=== PATIENT | male | born 1945 | race Caucasian/White ===

== ENCOUNTER 2016-12-26 15:33 | Inpatient (IN) | payer MEDICARE ==
--- NOTE | ~2016-12-26 | CN ---
Consultation Report [facility] [address] [place]. [address] NAME: KEYONNA BEGUM : 47 STATUS : ADM IN PAT#: [id number] AGE: 71 ADM/REG DATE : 12/26/16 MR#: [id number] REPORT SERV DATE: 12/30/16 DICTATED BY: KEYONNA ENG DATE: 12/29/16 REPORT STATUS : Draft TRANSCRIBED BY: MODL DATE: 12/29/16 NEPHROLOGY CONSULTATION DATE OF CONSULTATION: 12/29/2016 INDICATION FOR CONSULTATION: Acute on chronic kidney disease. HISTORY OF PRESENT ILLNESS: Mr. Begum is a 71-year-old male who is seen for acute on chronic kidney disease following admission for lower extremity edema and skin lesions. He was noted to have a prior creatinine of 2.12 in 11/2016 which has now huey to 2.85. He has taken several Aleve tablets and been on Prinivil and Lasix. Lasix was started when he was seen for his lower extremity edema at [facility]. He has received some metolazone and Bumex as well with improvement of lower extremity edema. Presently, he is being evaluated for new onset atrial fibrillation and cardiomyopathy with ejection fraction of 25%. He has longstanding type 2 diabetes mellitus and is on Avastin injections for diabetic retinopathy. Recent renal ultrasound demonstrated no obstruction or mass with changes consistent with chronic disease. PAST MEDICAL HISTORY: Type 2 diabetes mellitus, CHF, hypertension, diabetes, and diabetic retinopathy. SOCIAL HISTORY: The patient recently . Lives with [facility]. Has two sisters living in [place]. Remote smoker but no use in approximately 35 years. No alcohol use or illicit drug use. 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 MEDICATIONS ON ADMISSION: Aspirin, Avastin, Coreg, Keflex, Lasix, Prinivil, Zocor, and Refresh eyedrops. PAST SURGICAL HISTORY: None. ALLERGIES: NONE KNOWN. FAMILY HISTORY: Father from heart problems. Mother from kidney issues and had hypertension. Unaware of any end-stage renal disease, requiring dialysis. REVIEW OF SYSTEMS: HEENT: Decreased visual acuity but improving with Avastin injections. No epistaxis, pharyngitis, or otic infection. CARDIAC: Recent note of irregular heart rhythm. No lower extremity edema. Exertional dyspnea. Denies chest pain. PULMONARY: No hemoptysis, no pleuritic chest pain. GI: Occasional nausea, no vomiting. No melena. : Nocturia x1. No dysuria, gross hematuria, pyuria. MUSCULOSKELETAL: No arthralgias. No joint swelling. Consultation Report [facility] [address] [place]. [address] NAME: KEYONNA BEGUM : 47 STATUS : ADM IN [facility]#: [id number] AGE: 71 ADM/REG DATE : 12/26/16 MR#: [id number] REPORT SERV DATE: 12/30/16 DICTATED BY: KEYONNA ENG DATE: 12/29/16 REPORT STATUS : Draft TRANSCRIBED BY: MODL DATE: 12/29/16 Remainder of 12-point review of systems is negative. PHYSICAL EXAMINATION: GENERAL: A pleasant elderly man, mildly debilitated. VITAL SIGNS: Temp 96.2 blood pressure 91/61, pulse 71, and respiratory rate 16. HEENT: Eyes, no scleral icterus. Pupils equal, reactive to light. Extraocular movement intact. Nares patent. No lesions. Throat, no injection. Mucous membranes moist. NECK: No thyromegaly, masses, bruits. CHEST/LUNGS: Some decrease in breath sounds posteriorly, questionable dullness, late crackles posteriorly. CARDIAC: Irregular rhythm 1/6 systolic ejection murmur. No gallop. No rub. ABDOMEN: Supple. Normoactive bowel sounds. Nontender. No hepatosplenomegaly. No masses. /RECTAL: Not performed. EXTREMITIES: Lower extremities, lesions in both lower extremities. Left lower extremity wrapped and more swollen. Denies calf tenderness. DERMIS: Lower extremities skin lesions. No other sites noted. NEUROLOGIC: Cranial nerves intact. No lateralizing weakness. MUSCULOSKELETAL: No deformity. IMPRESSION: 1. Acute on chronic kidney disease, likely prerenal, question BAN inhibitor effect, nonsteroidals, both doubtful, likely related to congestive heart failure and diuresis. He likely also has underlying significant chronic kidney disease from diabetic nephropathy, and we expect nephrotic range proteinuria. 2. Acute on chronic systolic congestive heart failure. 3. Diabetic retinopathy, on intra-ocular Avastin injections. 4. Type 2 diabetes mellitus. 5. Cardiomyopathy with ejection fraction of 25%. 6. New onset atrial fibrillation. 7. Lower extremity edema, likely cardiorenal syndrome and/or related to proteinuria. 8. Hypertension. PLAN: 1. Would continue current medical therapy. 2. Labs. 3. Avoid hypotension. 4. Avoid nonsteroidal antiinflammatory drugs. CG/UBALDO Keyonna Consultation Report [address] [place] [address] NAME: KEYONNA BEGUM : 47 STATUS : ADM IN [facility]#: [id number] AGE: 71 ADM/REG DATE : 12/26/16 MR#: [id number] REPORT SERV DATE: 12/30/16 DICTATED BY: KEYONNA ENG DATE: 12/29/16 REPORT STATUS : Draft TRANSCRIBED BY: UBALDO DATE: 12/29/16 Jovanni Eng / [id number] CC: Danny Inman M.D.
--- NOTE | ~2016-12-26 | CN ---
Consultation Report [facility] [address] [place]. [address] NAME: KEYONNA BEGUM : 47 STATUS : ADM IN PAT#: [id number] AGE: 71 ADM/REG DATE : 12/26/16 MR#: [id number] REPORT SERV DATE: 12/27/16 DICTATED BY: RICHARD BAIRD DATE: 12/27/16 REPORT STATUS : Draft TRANSCRIBED BY: MODL DATE: 12/27/16 CONSULTATION DATE OF CONSULTATION: 12/27/2016 REASON FOR CONSULTATION: New onset atrial fibrillation as well as new cardiomyopathy. HISTORY OF PRESENT ILLNESS: Mr. Begum is a 71-year-old man with a very poorly defined medical history, who presents with two weeks of leg swelling as well as blistering and weeping from his lower extremities in the setting of ALLAN/CKD, severe systolic dysfunction (LVEF 25%), and atrial fibrillation. Collectively, these findings prompted consultation to Cardiology for further evaluation and care. In speaking with Mr. Begum, however, he has no cardiac complaints specifically. He denies having any chest pain, chest pressures, exertional symptoms, dizziness, or loss of consciousness. He states that he is able to complete his daily activities with fair comfort. He is able to ambulate around his home without much limitation. However, he does not exert himself in any moderate to high level activities. ALLERGIES: NONE. PAST MEDICAL HISTORY: As above as well as diabetes. He does have a poorly defined remote history of CHF; however, this was about 10 years ago and he is unsure of details. FAMILY HISTORY: Noncontributory for premature cardiovascular disease. SOCIAL HISTORY: The patient lives at home with his stepson. He functions fairly independently under normal circumstances. He denies drinking alcohol, smoking, or doing drugs. REVIEW OF SYSTEMS: As above, all other systems otherwise negative. HOME MEDICATIONS: Include: 1. Aspirin 325 mg p.o. daily. 2. Avastatin. 3. Coreg 12.5 p.o. b.i.d. 4. Keflex. 5. Lasix 40 mg q.a.m. 6. Lisinopril 10 mg q.a.m. 7. Zocor 40 mg p.o. at bedtime. PHYSICAL EXAMINATION: GENERAL: Blood pressure 103/70, pulse 100 to 110 irregular. GENERAL: Disheveled, poorly kept, poor dentition, older than stated age. Consultation Report [facility] [address] [place]. [address] NAME: KEYONNA BEGUM : 47 STATUS : ADM IN [facility]#: [id number] AGE: 71 ADM/REG DATE : 12/26/16 MR#: [id number] REPORT SERV DATE: 12/27/16 DICTATED BY: RICHARD BAIRD DATE: 12/27/16 REPORT STATUS : Draft TRANSCRIBED BY: MODLynda DATE: 12/27/16 NEURO: Awake, alert and oriented x3; no focal deficits, appropriate mood. HEAD AND NECK: Normocephalic and atraumatic, poor dentition, elevated JVP to about 10 cm of water. RESPIRATORY: Decreased breath sounds throughout with positive rales in bilateral mid to lower lung field with normal work of breathing. Otherwise, no wheezes or rhonchi. CARDIAC: Irregularly irregular. Normal S1, S2. 2/6 systolic murmur at the cardiac apex. ABD: Soft, non-tender, non-distended, no rebound or guarding. EXTREMITIES: Cool and wet. 2+ edema in his lower extremities bilaterally. Otherwise bandaged and not able to be examined. SKIN: Warm, dry and intact; no rash. PERTINENT TEST FINDINGS: Potassium 3.4, creatinine 2.12 down from 2.27. BNP 4200. TSH 0.461. Hemoglobin 12.8, white blood cell count 8.1. EKG with atrial fibrillation and right bundle-branch block. IMPRESSION AND PLAN: Mr. Begum is a 71-year-old gentleman with a poorly defined medical history, who presents with two weeks of lower extremity swelling as well as blistering in the setting of newly diagnosed severe systolic dysfunction, decompensated heart failure, atrial fibrillation, as well as acute kidney injury/chronic kidney disease. Accordingly, I have the following recommendations by problem below: 1. New cardiomyopathy. Strict I's and O's, sodium fluid restrict, congestive heart failure education, and IV diuresis. He will benefit from the addition of a thiazide diuretic given his chronic use of loop diuretic. In addition, workup of an etiology will be necessary; however, may be put into this from an outpatient basis. 2. New onset atrial fibrillation. He has been in atrial fibrillation since his admission. Therefore, I believe he will do best right now with an amiodarone drip. In light of moderate mitral regurgitation as well as questionable compliance, I am not sure as to whether he would do well with a BRIT cardioversion strategy. Nevertheless, I will reassess him in the morning, and strategize depending on what his arrhythmia status is at that time. Continuation of the heparin drip at this time will be fine. I will ask the child support case officer to explore alternatives including Eliquis and Xarelto as these may be the easiest for him to comply with. He is amenable to taking these medications. 3. Moderate mitral regurgitation. Manage as per new cardiomyopathy and new onset of atrial fibrillation. This may improve if it is functional in this setting. 4. Kidney injury. He may very well have a component of chronic kidney disease; however, in light of his volume status as well as his hemodynamic status, I suspect he likely has some component of acute kidney injury. This should improve with diuresis; however, it may be helpful to get renal consult on board to help us with management from this standpoint. VR/UBALDO Richard Consultation Report [address] [place]. [address] NAME: KEYONNA BEGUM : 47 STATUS : ADM IN PAT#: [id number] AGE: 71 ADM/REG DATE : 12/26/16 MR#: [id number] REPORT SERV DATE: 12/27/16 DICTATED BY: RICHARD BAIRD DATE: 12/27/16 REPORT STATUS : Draft TRANSCRIBED BY: MODL DATE: 12/27/16 MD Leidy / [id number] CC: Lucian Apodaca MD
--- NOTE | ~2016-12-26 | HP ---
History And Physical [facility] [address] [place]. [address] NAME: KEYONNA BEGUM : 47 STATUS : ADM IN PAT#: [id number] AGE: 71 ADM/REG DATE : 12/26/16 MR#: [id number] REPORT SERV DATE: 12/26/16 DICTATED BY: MARIAMA PARKER DATE: 12/26/16 REPORT STATUS : Draft TRANSCRIBED BY: MODL DATE: 12/26/16 DATE OF ADMISSION: 12/26/2016 CHIEF COMPLAINT: Lower extremity edema and lesions. HISTORY OF PRESENT ILLNESS: The patient is a 71-year-old male. He has a past medical history significant for, 1. Diabetes mellitus. The patient states he was previously on treatment and/or diet control, and was currently off both. 2. Possible history of CHF. The patient states he was told in the past he has CHF and may have had an evaluation at [facility] approximately 10 years ago. 3. Chronic kidney disease. He is uncertain of his baseline creatinine. 4. History of loss of vision. Uncertain as to the exact diagnosis. He presents today with complaint of lower extremity lesions. He states that he is a long- term being caring for his , who recently approximately a month ago. He was seen at [facility] approximately two weeks ago for the rash and lesions on his lower extremity, but declined inpatient evaluation at that time. He presents today with family with basically non-resolution of those symptoms. He has been having a lot of edema weeping and blistery lesions breaking out on his lower extremity, left greater than right. On questioning among some of the chronic medical problems, again on the diabetes, he states he was previously on treatment and diet but has been off for some time. On the CHF, he denies palpitations, exertional dyspnea, or orthopnea but has had edema. On the chronic kidney disease, he has been followed only by his PCP. He has never been referred to a glass beveler. PAST MEDICAL HISTORY: As covered above. PAST SURGICAL HISTORY: He denies any previous surgeries. CURRENT MEDICATIONS: Per his list, aspirin 325, Avastin injections every 3 weeks, Coreg 12.5 b.i.d., Keflex 500 b.i.d., Lasix 40, Prinivil 10, Zocor 40, Refresh eye drops. ALLERGIES: NONE. FAMILY HISTORY: Father from heart problems, mother from renal problems. SOCIAL HISTORY: He was a previous smoker, quit 30-35 years ago. No EtOH. REVIEW OF SYSTEMS: HEENT: No complaints. CARDIOVASCULAR: As covered in HPI. PULMONARY: No fever. There is sputum. GI: No nausea or vomiting. : No frequency, urgency, or dysuria. NEUROMUSCULOSKELETAL: No aches, pains, or myalgias. History And Physical [address] [address] NAME: KEYONNA BEGUM : 47 STATUS : ADM [facility]#: [id number] AGE: 71 ADM/REG DATE : 12/26/16 MR#: [id number] REPORT SERV DATE: 12/26/16 DICTATED BY: MARIAMA PARKER DATE: 12/26/16 REPORT STATUS : Draft TRANSCRIBED BY: UBALDO DATE: 12/26/16 Otherwise, 14-point review of systems is negative except as covered in HPI. PHYSICAL EXAMINATION: VITAL SIGNS: BP 120/73, pulse 104, temperature 98.1, respirations 18, saturation 99%. GENERAL: He is awake, alert, oriented, in no acute distress. HEENT: Normocephalic, atraumatic. Sclerae nonicteric. NECK: Supple. HEART: Irregular. Rate in the low 100s. LUNGS: Show some mild decreased breath sounds in the bases. ABDOMEN: Nontender, nondistended. EXTREMITIES: He has 1 to 2+ pitting edema bilaterally. The left lower extremity is examined. He has several superficial lesions that look like that may have been blistery and unroofed. No purulence. Suspect decreased pulses. I was told from the ER, they were dopplerable, but he does have cool to the touch. Feet not discolored. LABORATORY DATA: Sodium 134, potassium 3.7, chloride 94, CO2 of 35, BUN and creatinine 36 and 2.27, only other previous creatinine was 2.12 in November. Blood sugar 336, alkaline phosphatase 147, ALT 122. White count 8.1, H and H is 12.8 and 40.0, platelets are 230. Chest x-ray is pending. ASSESSMENT: Multiple medical problems as listed above. PLAN: 1. Concerning the diabetes, sliding scale, life educator, and A1c. 2. Concerning the possibility of CHF, BNP, echocardiogram, review chest x-ray, continue diuresis. 3. Concerning the history of chronic kidney disease, renal ultrasound, monitor numbers. 4. For the lower extremity lesions, Wound Care, vascular assessment, and diuresis. 5. We will rule out atrial fibrillation with EKG ordered this evening, anticoagulate if positive. TLF/MODL Mariama Parker M.D. / [id number] CC: aMriama Parker M.D.
--- NOTE | ~2016-12-26 | DS ---
Discharge Summary [facility] [address] [place]. [address] NAME: KEYONNA BEGUM : 47 STATUS : DIS IN PAT#: [id number] AGE: 71 ADM/REG DATE : 12/26/16 MR#: [id number] REPORT SERV DATE: 01/02/17 DICTATED BY: LUCIAN RODGERS DATE: 01/01/17 REPORT STATUS : Draft TRANSCRIBED BY: MODLynda DATE: 01/01/17 ADMISSION DATE: 12/26/2016 DISCHARGE DATE: 01/01/2017 PROCEDURES DONE: 1. On 12/26/2016, arterial Doppler lower extremity, normal arterial waveforms in both lower extremities and normal indices. The waveform stretchability dampen by great toe indicating small vessel disease. 2. On 12/26/2016, chest x-ray: Cardiomegaly with mild interstitial edema, the small white effusions, findings are stable. 3. On 12/29/2016, ultrasound kidney: Increased renal cortical echotexture consistent with medical renal disease. Bilateral benign renal cyst. Trace ascites. 4. On 12/26/2016 2D echo: Normal size left ventricle with severe global left ventricular systolic dysfunction, EF 25%. Mild left ventricular diastolic dysfunction. Mildly dilated right ventricle, mildly decreased systolic function. Mild left atrial enlargement. Moderate eccentric posteriorly directed mitral regurgitation. CONSULTATIONS: 1. Keyonna Medina M.D. for Renal. 2. Richard Forbes M.D. for Cardiology. REASON FOR ADMISSION: Lower extremity edema. HOSPITAL COURSE: A 71-year-old white male with past medical history of diabetes, diet controlled; chronic kidney disease, unknown baseline; history of lost vision, presenting with lower extremity edema. The patient has not taking care of himself for quite some time. The patient was being taking care of his who recently . Family members were concerned because of the patient's lower extremity edema as well as lesions involving his left lower extremity. Ultrasound arterial were done on the lower extremity shows the patient having a small vessel disease. However, the patient also was having atrial fibrillation. Cardiology was consulted. The patient was started on amiodarone drip and subsequently converted to rate control. In addition, the patient has also had a 2D echo done which showed a systolic dysfunction with an EF of 25%. The patient was given diuretics; however, the patient developed acute on chronic kidney disease, stage 4. Ultrasound of the kidneys shows echotexture consistent with medical kidney disease. More than likely, the patient has prolonged neglect of his medical condition. Nonetheless, Renal was consulted and has advised the patient can be safely discharged with followup as an outpatient. The patient's creatinine is currently 2.97 with a GFR of 24. Questionable if the patient is having cardiorenal syndrome. DISPOSITION: The patient is feeling fine, no complaint. ACTIVITY: As tolerated. DIET: Diabetic. Discharge Summary [address] [place]. [address] NAME: KEYONNA BEGUM : 47 STATUS : DIS IN PAT#: [id number] AGE: 71 ADM/REG DATE : 12/26/16 MR#: [id number] REPORT SERV DATE: 01/02/17 DICTATED BY: LUCIAN RODGERS DATE: 01/01/17 REPORT STATUS : Draft TRANSCRIBED BY: UBALDO DATE: 01/01/17 DISCHARGE INSTRUCTIONS: 1. The patient is to follow up with Renal within one weeks' time. 2. The patient to follow up with Cardiology within three to four weeks' time. DISCHARGE MEDICATIONS: 1. Amiodarone 200 mg p.o. daily. 2. Coreg 6.25 mg p.o. b.i.d. 3. Lisinopril 2.5 mg p.o. daily. 4. Lipitor 40 mg p.o. q.h.s. 5. Aspirin 325 mg p.o. daily. 6. Coumadin 3 mg p.o. daily. 7. Zocor 40 mg p.o. daily. 8. Avastatin 1.2 mg subcu q.3 weeks, given by Dr. Bustillo. DISCHARGE DIAGNOSES: 1. Lower extremity edema secondary to congestive heart failure. 2. Acute on chronic congestive heart failure, systolic dysfunction. EF of 25%. 3. Atrial fibrillation, rate controlled, on Coumadin. 4. Chronic kidney disease, stage 4. 5. Diabetes type 2, diet controlled. 6. Hyperlipidemia. HUEY/UBALDO Lucian Rodgers MD / [id number] CC: Danny Inman M.D.
[2016-12-26 14:15] LABS: BASOPHILS 0.2 %; BASOPHILS ABSOLUTE 0.02 10/3/uL (0.0-0.16); EOSINOPHILS 0.5 %; EOSINOPHILS ABSOLUTE 0.04 10/3/uL (0.0-0.53); ER CBC TAT 0 Hrs 07 Mins; HEMOGLOBIN 12.8 g/dL (13.6-17.8); IMMATURE GRANULOCYTES 0.2 %; IMMATURE GRANULOCYTES ABSOLUTE 0.02 10/3/uL (0.0-0.11); LYMPHOCYTES 8.8 %; LYMPHOCYTES ABSOLUTE 0.71 10/3/uL (0.67-4.30); MEAN CORPUSCULAR HEMOGLOB 27.8 pg (26.0-34.0); MEAN PLATELET VOLUME 10.6 fL (9.2-13.0); MONOCYTES 6.6 %; MONOCYTES ABSOLUTE 0.53 10/3/uL (0.21-1.20); NEUTROPHILS 83.7 %; NEUTROPHILS ABSOLUTE 6.75 10/3/uL (2.02-8.40); PLATELET COUNT 230 10/3/uL (150-400); RBC DISTRIBUTION WIDTH 15.7 % (12.0-16.0); WHITE BLOOD CELLS 8.1 10/3/uL (4.5-10.5)
[2016-12-26 14:16] LABS: MANUAL DIFF NO %
[2016-12-26 14:30] LABS: ALBUMIN 3.3 G/DL (3.5-5.0); ALKALINE PHOSPHATASE 147 U/L (45-117); BUN (BLOOD UREA NITROGEN) 36 MG/DL (6-23); CHLORIDE, SERUM 94 MMOL/L (96-112); CO2 (CARBON DIOXIDE) 35 MMOL/L (24-34); CREATININE 2.27 MG/DL (0.70-1.30); GFR AFRICAN AMERICAN 33 ML/MIN (>=60); GFR NON AFRICAN AMERICAN 28 ML/MIN (>=60); GLOBULIN 3.4 G/DL (2.5-4.1); GLUCOSE, SERUM 336 MG/DL (60-99); POTASSIUM, SERUM 3.7 MMOL/L (3.5-5.3); SGOT(AST) 27 U/L (5-40); SGPT(ALT) 122 U/L (5-65); SODIUM, SERUM 134 MMOL/L (135-148); TOTAL PROTEIN 6.7 G/DL (6.0-8.5)
[2016-12-26 15:13] LABS: INTERNATIONAL NORMAL RATI 1.2 UNITS (-); PARTIAL THROMBO TIME 28.8 SEC (22.5-37.2); PROTIME (NOT ORD) 14.6 SEC (12.0-14.5)
[~2016-12-26 15:33] MED LIST: ASA5GR PO; AVASTIN SC; COREG12 PO; K500 PO; L40 PO; PRIN10 PO; REFRES1 OPH; ZOCOR40 PO
[2016-12-26 18:19] LABS: FREE T4 1.22 NG/DL (0.76-1.46); PHOSPHORUS, SERUM 3.3 MG/DL (2.5-4.5); ULTRASENSITIVE TSH 0.461 MCIU/ML (0.358-3.740)
[2016-12-26 18:46] LABS: B NATRIURETIC PEPTIDE (BNP) 4194.3 PG/ML (< 100.0)
[2016-12-26 18:59] LABS: PROCALCITONIN 0.06 ng/mL (<0.5)
[2016-12-26 21:23] LABS: GLYCOHEMOGLOBIN (HbA1c) 8.4 % (4.7-6.1)
[2016-12-27 01:40] LABS: CALCIUM, SERUM 8.2 MG/DL (8.5-10.4); CHLORIDE, SERUM 100 MMOL/L (96-112); CO2 (CARBON DIOXIDE) 34 MMOL/L (24-34); CREATININE 2.12 MG/DL (0.70-1.30); GFR AFRICAN AMERICAN 35 ML/MIN (>=60); GFR NON AFRICAN AMERICAN 31 ML/MIN (>=60); POTASSIUM, SERUM 3.4 MMOL/L (3.5-5.3); SODIUM, SERUM 138 MMOL/L (135-148)
[2016-12-27 01:49] LABS: BUN (BLOOD UREA NITROGEN) 40 MG/DL (6-23); GLUCOSE, SERUM 118 MG/DL (60-99)
[2016-12-28 08:24] LABS: BASOPHILS 0.6 %; BASOPHILS ABSOLUTE 0.04 10/3/uL (0.0-0.16); EOSINOPHILS 2.9 %; HEMATOCRIT 37.8 % (40.0-51.0); HEMOGLOBIN 12.2 g/dL (13.6-17.8); IMMATURE GRANULOCYTES 0.3 %; IMMATURE GRANULOCYTES ABSOLUTE 0.02 10/3/uL (0.0-0.11); LYMPHOCYTES 16.4 %; LYMPHOCYTES ABSOLUTE 1.12 10/3/uL (0.67-4.30); MEAN CORPUS HGB CONC 32.3 g/dL (32.0-36.0); MEAN CORPUSCULAR HEMOGLOB 27.5 pg (26.0-34.0); MEAN CORPUSCULAR VOLUME 85.3 fL (80-100); MEAN PLATELET VOLUME 11.1 fL (9.2-13.0); MONOCYTES 7.6 %; MONOCYTES ABSOLUTE 0.52 10/3/uL (0.21-1.20); NEUTROPHILS 72.2 %; NEUTROPHILS ABSOLUTE 4.92 10/3/uL (2.02-8.40); PLATELET COUNT 212 10/3/uL (150-400); RBC DISTRIBUTION WIDTH 16.4 % (12.0-16.0); RED CELL COUNT 4.43 10/6/uL (4.7-6.1); WHITE BLOOD CELLS 6.8 10/3/uL (4.5-10.5)
[2016-12-28 08:25] LABS: MANUAL DIFF NO %
[2016-12-28 08:39] LABS: CALCIUM, SERUM 8.7 MG/DL (8.5-10.4); CHLORIDE, SERUM 98 MMOL/L (96-112); GFR AFRICAN AMERICAN 31 ML/MIN (>=60); GFR NON AFRICAN AMERICAN 26 ML/MIN (>=60); GLUCOSE, SERUM 140 MG/DL (60-99); SODIUM, SERUM 136 MMOL/L (135-148)
[2016-12-28 08:40] LABS: BUN (BLOOD UREA NITROGEN) 46 MG/DL (6-23); CO2 (CARBON DIOXIDE) 24 MMOL/L (24-34); POTASSIUM, SERUM 4.8 MMOL/L (3.5-5.3)
[2016-12-29 06:30] LABS: CHOL/HDL RATIO(NOT ORDER) 3.8 (0-5)
[2016-12-29 12:03] LABS: BASOPHILS 0.6 %; BASOPHILS ABSOLUTE 0.04 10/3/uL (0.0-0.16); EOSINOPHILS 0.8 %; EOSINOPHILS ABSOLUTE 0.06 10/3/uL (0.0-0.53); HEMOGLOBIN 12.8 g/dL (13.6-17.8); IMMATURE GRANULOCYTES 0.3 %; IMMATURE GRANULOCYTES ABSOLUTE 0.02 10/3/uL (0.0-0.11); LYMPHOCYTES 9.4 %; LYMPHOCYTES ABSOLUTE 0.68 10/3/uL (0.67-4.30); MEAN CORPUS HGB CONC 32.8 g/dL (32.0-36.0); MEAN CORPUSCULAR HEMOGLOB 27.6 pg (26.0-34.0); MEAN CORPUSCULAR VOLUME 84.1 fL (80-100); MEAN PLATELET VOLUME 10.6 fL (9.2-13.0); MONOCYTES 5.9 %; MONOCYTES ABSOLUTE 0.43 10/3/uL (0.21-1.20); NEUTROPHILS ABSOLUTE 6.01 10/3/uL (2.02-8.40); PLATELET COUNT 231 10/3/uL (150-400); RBC DISTRIBUTION WIDTH 16.2 % (12.0-16.0); RED CELL COUNT 4.64 10/6/uL (4.7-6.1); WHITE BLOOD CELLS 7.2 10/3/uL (4.5-10.5)
[2016-12-29 12:04] LABS: MANUAL DIFF NO %
[2016-12-29 12:17] LABS: A/G RATIO 0.9 (0.7-1.9); ALBUMIN 2.9 G/DL (3.5-5.0); ALKALINE PHOSPHATASE 153 U/L (45-117); CALCIUM, SERUM 8.3 MG/DL (8.5-10.4); CHLORIDE, SERUM 95 MMOL/L (96-112); CREATININE 2.89 MG/DL (0.70-1.30); GFR AFRICAN AMERICAN 24 ML/MIN (>=60); GFR NON AFRICAN AMERICAN 21 ML/MIN (>=60); GLOBULIN 3.2 G/DL (2.5-4.1); GLUCOSE, SERUM 165 MG/DL (60-99); POTASSIUM, SERUM 4.5 MMOL/L (3.5-5.3); SGOT(AST) 220 U/L (5-40); SGPT(ALT) 246 U/L (5-65); SODIUM, SERUM 133 MMOL/L (135-148); TOTAL BILIRUBIN 0.9 MG/DL (0-1.2); TOTAL PROTEIN 6.1 G/DL (6.0-8.5)
[2016-12-29 12:19] LABS: BUN (BLOOD UREA NITROGEN) 54 MG/DL (6-23); CO2 (CARBON DIOXIDE) 29 MMOL/L (24-34); PHOSPHORUS, SERUM 4.3 MG/DL (2.5-4.5)
[2016-12-29 13:07] LABS: INTERNATIONAL NORMAL RATI 1.7 UNITS (-)
[2016-12-29 13:08] LABS: PROTIME (NOT ORD) 20.2 SEC (12.0-14.5)
[2016-12-29 20:01] LABS: CREATININE (RANDOM URINE) 82.7 MG/DL; CREATININE, URINE 82.7 MG/DL; MICROALBUMIN, RANDOM URINE 27.4 MG/DL
[2016-12-30 06:09] LABS: BASOPHILS 0.5 %; BASOPHILS ABSOLUTE 0.03 10/3/uL (0.0-0.16); EOSINOPHILS 1.5 %; HEMATOCRIT 38.1 % (40.0-51.0); HEMOGLOBIN 12.4 g/dL (13.6-17.8); IMMATURE GRANULOCYTES 0.2 %; IMMATURE GRANULOCYTES ABSOLUTE 0.01 10/3/uL (0.0-0.11); LYMPHOCYTES 15.8 %; LYMPHOCYTES ABSOLUTE 1.04 10/3/uL (0.67-4.30); MEAN CORPUS HGB CONC 32.5 g/dL (32.0-36.0); MEAN CORPUSCULAR HEMOGLOB 27.4 pg (26.0-34.0); MEAN CORPUSCULAR VOLUME 84.1 fL (80-100); MEAN PLATELET VOLUME 10.8 fL (9.2-13.0); MONOCYTES 8.1 %; MONOCYTES ABSOLUTE 0.53 10/3/uL (0.21-1.20); NEUTROPHILS 73.9 %; NEUTROPHILS ABSOLUTE 4.86 10/3/uL (2.02-8.40); PLATELET COUNT 235 10/3/uL (150-400); RBC DISTRIBUTION WIDTH 16.1 % (12.0-16.0); RED CELL COUNT 4.53 10/6/uL (4.7-6.1); WHITE BLOOD CELLS 6.6 10/3/uL (4.5-10.5)
[2016-12-30 06:10] LABS: MANUAL DIFF NO %
[2016-12-30 06:16] LABS: INTERNATIONAL NORMAL RATI 1.7 UNITS (-); PROTIME (NOT ORD) 19.6 SEC (12.0-14.5)
[2016-12-30 06:20] LABS: CALCIUM, SERUM 8.3 MG/DL (8.5-10.4); CHLORIDE, SERUM 95 MMOL/L (96-112); CO2 (CARBON DIOXIDE) 31 MMOL/L (24-34); CREATININE 2.92 MG/DL (0.70-1.30); GFR AFRICAN AMERICAN 24 ML/MIN (>=60); GFR NON AFRICAN AMERICAN 21 ML/MIN (>=60); GLUCOSE, SERUM 133 MG/DL (60-99); PHOSPHORUS, SERUM 4.4 MG/DL (2.5-4.5); POTASSIUM, SERUM 4.1 MMOL/L (3.5-5.3); SGOT(AST) 144 U/L (5-40); SGPT(ALT) 203 U/L (5-65); SODIUM, SERUM 135 MMOL/L (135-148); TOTAL BILIRUBIN 1.1 MG/DL (0-1.2)
[2016-12-30 06:21] LABS: ALKALINE PHOSPHATASE 140 U/L (45-117); BUN (BLOOD UREA NITROGEN) 59 MG/DL (6-23); INTACT PTH (ICMA) 386.7 PG/ML (10.0-65.0)
[2016-12-30 07:45] LABS: PROCALCITONIN 0.62 ng/mL (<0.5)
[2016-12-31 05:51] LABS: BASOPHILS 0.3 %; BASOPHILS ABSOLUTE 0.02 10/3/uL (0.0-0.16); EOSINOPHILS 1.5 %; EOSINOPHILS ABSOLUTE 0.09 10/3/uL (0.0-0.53); HEMATOCRIT 37.6 % (40.0-51.0); HEMOGLOBIN 12.4 g/dL (13.6-17.8); IMMATURE GRANULOCYTES 0.2 %; IMMATURE GRANULOCYTES ABSOLUTE 0.01 10/3/uL (0.0-0.11); LYMPHOCYTES 18.6 %; LYMPHOCYTES ABSOLUTE 1.08 10/3/uL (0.67-4.30); MEAN CORPUSCULAR HEMOGLOB 27.9 pg (26.0-34.0); MEAN CORPUSCULAR VOLUME 84.5 fL (80-100); MEAN PLATELET VOLUME 11.1 fL (9.2-13.0); MONOCYTES 10.5 %; MONOCYTES ABSOLUTE 0.61 10/3/uL (0.21-1.20); NEUTROPHILS 68.9 %; PLATELET COUNT 227 10/3/uL (150-400); RBC DISTRIBUTION WIDTH 16.5 % (12.0-16.0); RED CELL COUNT 4.45 10/6/uL (4.7-6.1); WHITE BLOOD CELLS 5.8 10/3/uL (4.5-10.5)
[2016-12-31 05:59] LABS: INTERNATIONAL NORMAL RATI 1.5 UNITS (-); PROTIME (NOT ORD) 17.5 SEC (12.0-14.5)
[2016-12-31 06:02] LABS: ALBUMIN 2.9 G/DL (3.5-5.0); ALKALINE PHOSPHATASE 138 U/L (45-117); BUN (BLOOD UREA NITROGEN) 58 MG/DL (6-23); CALCIUM, SERUM 8.3 MG/DL (8.5-10.4); CHLORIDE, SERUM 96 MMOL/L (96-112); CO2 (CARBON DIOXIDE) 33 MMOL/L (24-34); CREATININE 2.97 MG/DL (0.70-1.30); GFR AFRICAN AMERICAN 24 ML/MIN (>=60); GFR NON AFRICAN AMERICAN 20 ML/MIN (>=60); MANUAL DIFF NO %; POTASSIUM, SERUM 4.4 MMOL/L (3.5-5.3); SGOT(AST) 94 U/L (5-40); SGPT(ALT) 162 U/L (5-65); SODIUM, SERUM 137 MMOL/L (135-148); TOTAL BILIRUBIN 0.8 MG/DL (0-1.2); TOTAL PROTEIN 5.9 G/DL (6.0-8.5)
[2016-12-31 06:03] LABS: GLUCOSE, SERUM 87 MG/DL (60-99)
[2017-01-01 05:50] LABS: INTERNATIONAL NORMAL RATI 1.4 UNITS (-); PROTIME (NOT ORD) 16.8 SEC (12.0-14.5)
[2017-01-01 05:57] LABS: A/G RATIO 0.9 (0.7-1.9); ALBUMIN 2.8 G/DL (3.5-5.0); ALKALINE PHOSPHATASE 140 U/L (45-117); BUN (BLOOD UREA NITROGEN) 56 MG/DL (6-23); CALCIUM, SERUM 8.6 MG/DL (8.5-10.4); CHLORIDE, SERUM 97 MMOL/L (96-112); CO2 (CARBON DIOXIDE) 30 MMOL/L (24-34); CREATININE 2.97 MG/DL (0.70-1.30); GFR AFRICAN AMERICAN 24 ML/MIN (>=60); GFR NON AFRICAN AMERICAN 20 ML/MIN (>=60); GLOBULIN 3.2 G/DL (2.5-4.1); GLUCOSE, SERUM 90 MG/DL (60-99); PHOSPHORUS, SERUM 3.6 MG/DL (2.5-4.5); POTASSIUM, SERUM 4.5 MMOL/L (3.5-5.3); SGOT(AST) 79 U/L (5-40); SGPT(ALT) 143 U/L (5-65); SODIUM, SERUM 136 MMOL/L (135-148); TOTAL BILIRUBIN 0.8 MG/DL (0-1.2)
[2017-02-16] MEDS ORDERED: CORDARONE PO (18:05)
[2017-02-16] MEDS ORDERED: CYMBALTA30 PO (18:06)
[2017-02-16] MEDS ORDERED: LIPITOR20 PO (18:06)
[2017-02-16] MEDS ORDERED: NEUR100 PO (18:06)
[2017-02-16] MEDS ORDERED: ZOFRAN4 PO (18:07)
[2017-02-16] MEDS ORDERED: COREG6 PO (18:07)
[2017-02-16] MEDS ORDERED: L40 PO (18:08)
[2017-02-16] MEDS ORDERED: C1 PO (18:10)
[2017-02-16] MEDS ORDERED: DSS PO (18:11)
[2017-02-16] MEDS ORDERED: ASA5GR PO (18:11)
[2017-02-16] MEDS ORDERED: SYSTANE OPH (18:12)
[2017-02-16] MEDS ORDERED: RASH CREAM TOP (18:16)
[2017-02-16] MEDS ORDERED: WOUND CARE TOP (18:16)
[2017-02-16] MEDS ORDERED: AVASTIN SC (18:18)
== END 2017-01-01 18:21 | DRG 291 ==
LOC: ER 15:33 → 5SO 16:02 → 7NO 12-27 19:53
PROVIDERS: Emergency Medicine; Hospitalist; Internal Medicine; Internal Medicine Nephrology; Student in an Organized Health Care Education/Training Program
DX: I13.0 Hypertensive heart and chronic kidney disease with heart failure and stage 1 through stage 4 chronic kidney disease, or unspecified chronic kidney disease (principal); I50.23 Acute on chronic systolic (congestive) heart failure; E11.22 Type 2 diabetes mellitus with diabetic chronic kidney disease; N18.4 Chronic kidney disease, stage 4 (severe); N17.9 Acute kidney failure, unspecified; E11.622 Type 2 diabetes mellitus with other skin ulcer; I42.9 Cardiomyopathy, unspecified; L97.929 Non-pressure chronic ulcer of unspecified part of left lower leg with unspecified severity; L97.919 Non-pressure chronic ulcer of unspecified part of right lower leg with unspecified severity; I48.91 Unspecified atrial fibrillation; Z79.82 Long term (current) use of aspirin; Z79.899 Other long term (current) drug therapy; Z79.01 Long term (current) use of anticoagulants; E78.5 Hyperlipidemia, unspecified; I34.0 Nonrheumatic mitral (valve) insufficiency; E11.319 Type 2 diabetes mellitus with unspecified diabetic retinopathy without macular edema
CPT/HCPCS: 71010; 76775; 80048; 80053; 80061; 80069; 82043; 82570; 82962; 83036; 83735; 83880; 83970; 84100; 84145; 84300; 84439; 84443; 85025; 85610; 85730; 93005; 93306; 93923; 97162-GP; 97165-GO; 97535-GO; 99284; A9270-GY; G8978-CJ-GP; G8979-CH-GP; G8987-CK-GO; G8988-CJ-GO; J0282